=== PATIENT | female | born 1965 | race Caucasian/White ===

== ENCOUNTER 2022-04-25 10:09 | Emergency (ER) | payer OTHER, SELFPAY ==
[2022-04-25 10:29] VITALS: BP 124/79; PULSE 82; RESP 18; TEMP 36.4; O2SAT 99; BMI 29.0
--- NOTE | 2022-04-25 10:57 | ED.SKABFB ---
HPI - Skin/Abscess/Foreign Bdy General Chief complaint: Skin/Abscess/Foreign Body Stated complaint: Rash under left breast/ painful Time Seen by Provider: 04/25/22 10:46 Source: patient Mode of arrival: Family Vehicle Limitations: no limitations History of Present Illness HPI narrative: 56-year-old female who is here for evaluation of approximately 1 week of a rash under her left breast. She states she has had cold sores in the past. She started taking some medicine that she takes for cold sores and she thinks that has improved her rash that she currently has somewhat. It does burn. Does have itching. Is forming blisters. She thought maybe was shingles but she is had the shingles vaccine in the past. No fevers. She is been also putting topical Benadryl cream over the area. Related Data Home Medications Medication Instructions Recorded Confirmed ALBUTEROL SULFATE (Ventolin / 1 - 2 puff INH PRN ##0 03/30/08 Proventil) Cetirizine Hydrochloride (Zyrtec) 0 PO BID ##0 03/30/08 Esomeprazole Magnesium (Nexium) 0 PO * DOSE/FREQUENCY ##1 03/30/08 FLUTICASONE 50MCG THAD INH- 0 INH BID ##0 03/30/08 (FLUTICASONE PROPIONATE) ranitidine HCl 75 mg tablet 75 mg PO QDAY ##0 02/05/17 Previous Rx's Medication Instructions Recorded acyclovir 800 mg tablet 800 mg PO 5XD 7 days #35 tabs 04/25/22 Allergies Allergy/AdvReac Type Severity Reaction Status Date / Time latex [LATEX] Allergy Unknown Verified 04/25/22 10:29 EES Allergy Unknown Uncoded 04/25/22 10:29 Review of Systems Constitutional Constitutional: Reports system reviewed and no additional complaints, except as documented Integumentary/Breasts Skin/Breast: Reports system reviewed and no additional complaints, except as documented Neurologic Neurologic: Reports system reviewed and no additional complaints, except as documented Hematologic/Lymphatic On Anticoagulants: No Patient History Medical History Contusion of left foot COPD (chronic obstructive pulmonary disease) with acute bronchitis Social History Smoking Status: Current every day smoker Smoking Status: Current every day smoker tobacco type: cigarettes alcohol intake frequency: 0-2 drinks per day Substance Use Type: marijuana Exam Initial Vital Signs Initial Vital Signs: Vital Signs Temperature 97.5 F L 04/25/22 10:29 Pulse Rate 82 04/25/22 10:29 Respiratory Rate 18 04/25/22 10:29 Blood Pressure 124/79 04/25/22 10:29 Pulse Oximetry 99 04/25/22 10:29 Oxygen Delivery Method 04/25/22 10:29 Const General: cooperative and comfortable HENMT Head: normal to inspection and normocephalic Resp Effort & Inspection: normal respiratory effort Cardio Rate: regular rate Skin Other: Patient has a rash that follows the dermatome of her left flank and abdomen. It has lesions that are blisters in various stages of healing consistent with shingles. There is no appearance of any superinfection. Extrem General: normal to inspection and capillary refill normal Course Vital Signs Vital signs: Vital Signs - 8 hr 04/25/22 10:29 Temperature 97.5 F L Pulse Rate 82 Respiratory Rate 18 Blood Pressure 124/79 Pulse Oximetry 99 Oxygen Delivery Method Room Air MDM - Skin/Abscess/Foreign Bdy MDM Narrative Medical decision making narrative: History and physical exam today is consistent with shingles. She is had the lesions for 7 days however does seem to be producing new lesions. We will start her on acyclovir however I did discuss with her that this potentially may not help her symptoms she has had it for so long. She understands this and would still like to start the medication. She was given return precautions. No indication for antibiotics. She expressed understanding and agreement. Discharge Plan Departure Patient Disposition: Home Clinical Impression: Shingles Instructions: DI for Shingles Activity Restrictions/Additional Instructions: Take the medications as directed. Keep the areas covered until your no longer forming any blisters. Keep your follow-up appointment with your primary doctor that is scheduled for the beginning of next month. Return to the emergency department for any new or worsening symptoms. Prescriptions: New acyclovir 800 mg tablet 800 mg PO 5XD 7 Days Qty: 35 0RF Rx Instructions: space evenly during waking hours No Action Esomeprazole Magnesium (Nexium) 0 PO * [place] DOSE/FREQUENCY Qty: 1 ALBUTEROL SULFATE (Ventolin / Proventil) 1 - 2 puff INH PRN Qty: 0 FLUTICASONE 50MCG THAD INH- (FLUTICASONE PROPIONATE) 0 INH BID Qty: 0 Cetirizine Hydrochloride (Zyrtec) 0 PO BID Qty: 0 ranitidine HCl 75 MG tablet 75 mg PO QDAY Qty: 0 Referrals: Venkatesh Gutierres MD [Primary Care Provider] -
== END 2022-04-25 11:30 | disposition home or self-care (01) ==
PROVIDERS: Emergency Provider Emergency Medicine; Family Provider Family Medicine; PCP Family Medicine
DX: B02.9 Zoster without complications (principal)
CPT/HCPCS: 99281